=== PATIENT | male | born 1960 ===

== ENCOUNTER 2017-03-22 11:31 | Day surgery (SDC) | payer OTHER ==
[2017-03-18 11:51] VITALS: BMI 31.1
[2017-03-22 11:59] LABS: BASO # 0.03 K/mm3 (0.0-2.0); BASO % 0.4 % (0.0-3.0); EOS # 0.3 (0.0-0.7); EOS % 4.4 % (1.5-5.0); GRAN # 4.22 (1.4-6.5); GRAN % 59.9 % (50.0-68.0); HEMATOCRIT 43.2 % (42.0-52.0); LYMPH # 2.2 (1.2-3.4); LYMPH % 30.5 % (22.0-35.0); MEAN CORPUSCULAR HGB CONC 33.3 g/dl (31.0-37.0); MEAN PLATELET VOLUME 10.8 fl (7.0-11.0); MONO # 0.3 (0.1-0.6); MONO % 4.8 % (1.0-6.0); RED CELL DISTRIBUTION WIDTH 15.6 % (11.5-14.5); WHITE BLOOD COUNT 7.1 10^3/ul (4.5-11.0)
[2017-03-22 12:10] LABS: BLOOD UREA NITROGEN 16 mg/dL (7-21); CALCIUM 10.2 mg/dL (8.4-10.5); CARBON DIOXIDE 26 mmol/L (21-33); CHLORIDE 102 mmol/L (98-107); GFR AFRICAN-AMERICAN > 60; GLUCOSE,RANDOM 170 mg/dL (70-110); INR 0.98 (0.93-1.08); PARTIAL THROMBOPLASTIN TIME 27.1 Seconds (23.7-30.8); POTASSIUM 4.2 mmol/L (3.6-5.0); SODIUM 142 mmol/L (132-148)
[2017-03-22] MEDS ORDERED: Midazolam 2 MG/2 ML VIAL ONE (14:35)
[2017-03-22] MEDS ORDERED: Oxycodone/Acetaminophen 5/325 mg Tab PO PRN (15:21)
[2017-03-22] MEDS ORDERED: Sodium Chloride 0.45% 1,000 ML IV SCH (15:30)
[2017-03-22 15:33] LABS: BODY FLUID TYPE PERITONEAL/ASCITES
[2017-03-22] MEDS ORDERED: Oxycodone/Acetaminophen 5/325 mg Tab ONE (15:54)
[2017-03-22 16:13] LABS: BF GROSS APPEARANCE CLEAR (CLEAR)
[2017-03-22 16:19] VITALS: O2SAT 99
[2017-03-22 16:43] VITALS: RESP 18; TEMP 97.9
[2017-03-22 17:45] VITALS: BP 112/70; PULSE 86
--- NOTE | 2017-03-22 19:33 | CT ---
PROCEDURE: CT guided right renal cyst aspiration HISTORY: Right flank pain. 7 x 11 cm right peripelvic cyst. Needs drainage. PHYSICIAN(S): Edgar Stewart MD. TECHNIQUE: The relative risks and indications of the procedure were explained to the patient and consent obtained. The patient was placed prone on the CT scanner and preliminary images through the kidneys obtained. Conscious sedation and monitoring were provided throughout the procedure by a nurse. There is a 7 x 11 cm simple appearing cyst in the right renal pelvis.. A right posterior approach was selected and the area prepped and draped in the usual sterile fashion. 1% Xylocaine was used to anesthetize the skin and soft tissues. A 7 Montenegrin trocar catheter was advanced into the right renal cyst. 400 cc of clear straw-colored fluid was aspirated. The appropriate labs were sent. Postprocedure images showed complete drainage of the cyst and no significant hemorrhage P IMPRESSION: 1. CT-guided right renal cyst aspiration as described above. 400 cc of straw-colored fluid was aspirated. The appropriate labs were sent.
== END 2017-03-22 18:00 | disposition home or self-care (01) ==
LOC: SDS 11:31
PROVIDERS: ATTEND Radiology Vascular & Interventional Radiology
DX: N28.1 Cyst of kidney, acquired (principal); E11.9 Type 2 diabetes mellitus without complications
CPT/HCPCS: 36415; 49406; 80048; 85025; 85610; 85730; 87070; 87075; 87101; 89051; J2250; J2405; J3010; J7030

== ENCOUNTER 2018-05-04 07:07 | Day surgery (SDC) | payer OTHER ==
[2018-05-01 16:40] VITALS: BMI 30.2
[2018-05-04 07:44] LABS: BASO # 0.04 K/mm3 (0.0-2.0); BASO % 0.5 % (0.0-3.0); EOS # 0.4 (0.0-0.7); EOS % 5.7 % (1.5-5.0); GRAN # 3.99 (1.4-6.5); GRAN % 52.7 % (50.0-68.0); HEMOGLOBIN 14.6 g/dL (14.0-18.0); LYMPH # 2.7 (1.2-3.4); LYMPH % 35.4 % (22.0-35.0); MEAN CELL VOLUME 76.5 fl (80.0-105.0); MEAN CORPUSCULAR HGB CONC 32.7 g/dl (31.0-37.0); MEAN PLATELET VOLUME 10.9 fl (7.0-11.0); MONO # 0.4 (0.1-0.6); MONO % 5.7 % (1.0-6.0); RBC 5.83 10^6/uL (3.5-6.1); RED CELL DISTRIBUTION WIDTH 15.7 % (11.5-14.5); WHITE BLOOD COUNT 7.6 10^3/uL (4.5-11.0)
[2018-05-04 07:56] LABS: INR 0.87; PARTIAL THROMBOPLASTIN TIME 29.7 Seconds (25.1-36.5)
[2018-05-04 07:59] LABS: BLOOD UREA NITROGEN 13 mg/dL (7-21); CALCIUM 9.3 mg/dL (8.4-10.5); GFR NON-AFRICAN AMERICAN > 60; HDL CHOLESTEROL 30 mg/dL (29-60)
[2018-05-04 08:10] LABS: LDL CHOLESTEROL 89 mg/dL (0-129)
--- NOTE | 2018-05-04 08:45 | HP ---
DATE OF EXAM: 05/04/2018 REASON FOR ADMISSION: Left heart cath, possible angioplasty, abnormal stress test. BRIEF CLINICAL HISTORY: This is a 57-year-old male with past medical history significant for diabetes, hypertension, hyperlipidemia, recurrent chest pain, and complaining of chest pain on exertion. Patient underwent a stress test, walk on the treadmill, and is abnormal, so patient is scheduled for elective cardiac cath, possible angioplasty. Patient underwent a regular stress test that was equivocal, shows [address] depression upsloping II, III, aVF, V5, V6 and is read by equivocal, so patient is scheduled for elective cardiac cath, possible angioplasty. PAST HISTORY: Significant for diabetes, hypertension, and hyperlipidemia. SOCIAL HISTORY: Denies smoking, denies any history of alcohol abuse. CURRENT CARDIAC WORKUP: Patient had a stress test that is regular treadmill. Patient walked on the treadmill for total 10 minutes and 37 seconds, stage IV with a work capacity 12.7 METs, but at the peak of stress the patient shows ST changes 1-mm depression with upsloping II, III, aVF, V5, V6. Equivocal suggested either nuclear or cardiac catheterization. CURRENT MEDICATIONS: Patient is taking Nexium 40 mg daily, Benicar 40 mg daily, atorvastatin 40 mg daily, aspirin 81 mg daily, , Wellbutrin XL 150 mg daily, glipizide 10 mg daily, gabapentin 200 mg daily, and insulin Lantus 50 units subcutaneous b.i.d. PHYSICAL EXAMINATION: GENERAL: Height of patient 5 feet 2 inches, weight of patient 165 pounds, body mass index 30.3 kg per meter square. VITAL SIGNS: Rest of the vitals, temperature afebrile, heart rate 80, and blood pressure 130/80. HEENT: PERRLA. Extraocular muscles intact. NECK: Supple. No carotid bruits or thyromegaly. CHEST: Clear to auscultation. HEART: S1, S2, regular. ABDOMEN: Soft. EXTREMITIES: Clubbing, cyanosis negative. LABORATORY DATA: Blood workup pending. IMPRESSION: A 57-year-old male with past medical history of diabetes, hypertension, and hyperlipidemia complaining of chest pain and dyspnea on exertion. Patient underwent a stress test. There is an abnormal equivocal, suggest cardiac catheterization. Patient denies any shortness of breath now. We will load with aspirin and Plavix, and wait for the blood work. When the blood work is available, we will load with aspirin and Plavix and pursue cardiac catheterization. Further recommendation after cardiac catheterization. Thank you Dr. Leahy for the opportunity in taking care of patient, Ralph Carvalho. Further recommendation after cardiac catheterization. Larry Ledezma MD
[2018-05-04] MEDS ORDERED: Lidocaine 2% PF (10 ml) Amp ONE (08:51)
[2018-05-04] MEDS ORDERED: Iohexol 350mgl/ml 50 ML ONE (08:52)
[2018-05-04] MEDS ORDERED: Nitroglycerin 50mg in D5W 50 MG/250 ML BOTTLE IV ONE (08:52)
[2018-05-04] MEDS ORDERED: Iodixanol 320 MG/ML 100 ML BOTTLE IV ONE (08:52)
[2018-05-04] MEDS ORDERED: Verapamil 2 ML ONE (08:52)
[2018-05-04] MEDS ORDERED: Phenylephrine 10 mg/ml Inj ONE ×2 (08:52→10:13)
[2018-05-04] MEDS ORDERED: Iodixanol 320 MG/ML 200 ML BOTTLE IV ONE (08:52)
[2018-05-04] MEDS ORDERED: Midazolam 2 MG/2 ML VIAL ONE ×2 (09:19→09:38)
[2018-05-04] MEDS ORDERED: Dextrose 50% SYRINGE Inj (50 ml) ONE (10:05)
[2018-05-04] MEDS ORDERED: Bacitracin 500 Units/gm Oint Foilpak UD TOP ONE (10:10)
[2018-05-04] MEDS ORDERED: Sodium Chloride 0.9% 1,000 ML IV SCH (10:15)
[2018-05-04 10:52] VITALS: TEMP 97.5
[2018-05-04 11:11] VITALS: O2SAT 95
--- NOTE | 2018-05-04 12:15 | CPOSTOP ---
DATE: 05/04/2018 CARDIOVASCULAR LAB POSTPROCEDURE NOTE DICTATING PHYSICIAN: Larry Ledezma MD. [place] PREP TEACHER: NICOLÁS Valentin TYPE OF ANESTHESIA: Moderate conscious sedation. Total dose given, 3 mg of Versed and 150 of fentanyl. Periodically, started 1 mg of Versed, 50 of fentanyl. PRE-PROCEDURE DIAGNOSES: Unstable angina, abnormal stress test. PROCEDURE PERFORMED: Left heart catheterization. FINDINGS: Nonobstructive coronary artery disease, preserved LV function. FINAL DIAGNOSIS: Nonobstructive coronary artery disease. POSTPROCEDURE CONDITION: Stable. VASCULAR ACCESS SITE: Left radial. CLOSURE DEVICE: TR Band. TOTAL RADIATION DOSE: 7612.3 milligray unit. TOTAL FLUORO TIME: 1.9 minutes. Larry Ledezma MD
[2018-05-04 13:02] VITALS: BP 109/71; PULSE 80; RESP 20
[2018-05-04] MEDS ORDERED: Bacitracin 500 Units/gm Oint Foilpak UD ONE (13:08)
--- NOTE | 2018-05-04 17:46 | CARD ---
APPROVED REPORT Date of service: 05/04/2018 Procedure(s) performed: Left Heart Catheterization HISTORY The patient is a 57 year-old male with a history of : diabetes mellitus with insulin treatment , previous diagnostic cath, hypertension , dyslipidemia , chst pain and positive stress test. INDICATION The indication(s) include : positive stress test. CASE TECHNIQUE The patient was brought electively to the Cardiac Catheterization Laboratory in a fasting state and was prepped and draped in a sterile manner. The left wrist was infiltrated with 2% Lidocaine subcutaneous anesthesia. A 6FR Eat Your KimchiDESStubmatic ACCESS KIT sheath was inserted into the left radial artery without difficulty. Coronary angiography was performed using coronary diagnostic catheters. The left coronary system was accessed and visualized with a Diagnostic ,5 Fr JL 3.5 catheter. The right coronary system was accessed and visualized with a Diagnostic ,5 Fr JR 4 catheter. The left ventricle was accessed and visualized with a 5F PIGTAIL 145 CATH DXT 110 CM catheter. Left ventricular/Aortic Valve gradient assessed on pullback. Left ventriculogram was performed in FONTENOT projection. Closure device was deployed with a Fr TR Band (Regular) without any complications. The patient tolerated the procedure well and there were no complications associated with the procedure. Vessel Analysis The patient's coronary anatomy is right dominant. The left main coronary artery is a large size vessel without significant stenosis. The left main bifurcates to the left anterior descending and circumflex. The left anterior descending artery is a medium size vessel with diffuse calcification noted throughout this vessel and without significant stenosis. There is a 30-40% stenosis in the mid segment. The first diagonal branch is a small size vessel with intimal irregularities and without significant stenosis. The circumflex artery is a large size vessel with intimal irregularities and without significant stenosis. The first obtuse marginal branch is a large size vessel with intimal irregularities and without significant stenosis. The right coronary artery is a medium size vessel with intimal irregularities and without significant stenosis. The right posterior descending artery is a small size vessel with diffuse calcification noted throughout this vessel and without significant stenosis. There is a 55% stenosis in the mid segment. The right posterolateral branch is a small size vessel with diffuse calcification noted throughout this vessel and without significant stenosis. Left Ventricle The left ventricle is normmal in size with normal contractility. There was no cardiomyopathy. The left ventricular ejection fraction is estimated to be 55-60%. The left ventricular end diastolic pressure is 15-20 mmHg. with respiratory variation There was no gradient across the aortic valve upon pullback. Conclusion Non obstructive CAD limited to small R PDA 55% diffusely diseased. But diffuse atherosclerotic Campus Noted. Preserved Lv Fx. EF-55-60%, EDP-15-20 with respiraqtory variation. LILIAM Recommendations Aggressive Medical TherapyCardiac Risk Reduction Program Weight Loss Reduction Program Consider Re assess for LILIAM. Increase atorvastatin to 40 mg po daily with a goal to keep lDL< 70 Echo to assess Valvular Fx and RVSP CC; dr. Saida Leahy.
== END 2018-05-04 14:30 | disposition home or self-care (01) ==
LOC: CATH 07:07
PROVIDERS: ATTEND Internal Medicine Cardiovascular Disease
DX: I25.10 Atherosclerotic heart disease of native coronary artery without angina pectoris (principal); I25.110 Atherosclerotic heart disease of native coronary artery with unstable angina pectoris; I10 Essential (primary) hypertension; E78.5 Hyperlipidemia, unspecified; E11.9 Type 2 diabetes mellitus without complications; Z79.4 Long term (current) use of insulin
CPT/HCPCS: 36415; 80048; 80061; 85025; 85610; 85730; 86850; 86900; 93458; 99152; 99153; C1769; C1887 ×2; J1644 ×2; J2250; J2405; J3010; J7030; Q9966

== ENCOUNTER 2018-09-02 07:41 | Outpatient (CLI) | payer OTHER | END 2018-09-02 07:42 | disposition home or self-care (01) | LOC: RAD 07:41 ==

== ENCOUNTER 2018-09-20 20:45 | Inpatient (IN) | payer OTHER ==
[2018-09-20 20:45] VITALS: BMI 30.2
[2018-09-20] MEDS ORDERED: Sodium Chloride 0.9% 1,000 ML IV STA (21:43)
--- NOTE | 2018-09-20 21:46 | ED PDOC ---
Arrival/HPI - General Chief Complaint: Abdominal Pain Time Seen by Provider: 09/20/18 21:38 Historian: Patient, Spouse - History of Present Illness Narrative History of Present Illness (Text): 09/20/18 23:56 57 y/o male with PMH of HTN, CAD, SBO s/p Hernia repair in 2014, DM presents to ED c/o abdominal pain x 6 hours. Abdominal pain is sharp, generalized, worst in the RLQ. Pain feels similar to previous SBO. Pt vomited approx 5 times today since the onset of pain, nonbloody, nonbilious. Associated dysuria x 1 week, has been taking old Amoxicillin at home intermittently, which pt stopped today. Pt also took 2 linzess this afternoon. Last BM this morning, brown, soft. Has been unable to tolerate PO since this morning secondary to vomiting. Denies chest pain, SOB, back pain, headache, dizziness, diarrhea, constipation, hematemesis, or any other complaints. Past Medical History - Provider Review Nursing Documentation Reviewed: Yes - Infectious Disease Hx of Infectious Diseases: None - Cardiac Hx Cardiac Disorders: No - Pulmonary Hx Respiratory Disorders: Yes Hx Sleep Apnea: Yes - Neurological Hx Neurological Disorder: No - HEENT Hx HEENT Disorder: Yes Hx Deafness: Yes (L EAR) - Renal Hx Renal Disorder: Yes Hx Kidney Stones: Yes - Endocrine/Metabolic Hx Endocrine Disorders: Yes Hx Diabetes Mellitus Type 2: Yes - Hematological/Oncological Hx Blood Disorders: No - Integumentary Hx Dermatological Disorder: No - Musculoskeletal/Rheumatological Hx Musculoskeletal Disorders: Yes - Gastrointestinal Hx Gastrointestinal Disorders: Yes (HEMORRHOIDSWTIH SX) Hx Gastroesophageal Reflux: Yes Other/Comment: INCARCERATED UMBILICAL HERNIA 05-19-15-PARTIAL SMALL BOWEL OBSTRUCTION 05-21-15 - Genitourinary/Gynecological Hx Genitourinary Disorders: No - Psychiatric Hx Psychophysiologic Disorder: No Hx Substance Use: No - Surgical History Hx Cardiac Catheterization: Yes (x 3) Hx Tonsillectomy: Yes - Anesthesia Hx Anesthesia Reactions: No Hx Malignant Hyperthermia: No - Suicidal Assessment Feels Threatened In Home Enviroment: No Family/Social History - Physician Review Nursing Documentation Reviewed: Yes Family/Social History: No Known Family HX Smoking Status: Never Smoked Hx Alcohol Use: No Hx Substance Use: No Hx Substance Use Treatment: No Allergies/Home Meds Allergies/Adverse Reactions: Allergies No Known Allergies Allergy (Verified 09/20/18 21:32) Home Medications: Home Meds Medication Instructions Recorded Confirmed Atorvastatin Calcium [Lipitor] 40 mg PO QPM 12/22/11 09/20/18 Esomeprazole Magnesium [Nexium] 40 mg PO DAILY 12/22/11 09/20/18 Magnesium 400 mg PO BID 06/21/13 09/20/18 Glipizide 10 mg PO TID 02/15/16 09/20/18 buPROPion XL [Wellbutrin XL] 150 mg PO DAILY 04/19/16 09/20/18 Gabapentin [Neurontin] 200 mg PO BID 05/05/16 09/20/18 Qanbq-5-Ucuc Ethyl Esters 1 GM 1 gm PO BID 05/05/16 09/20/18 [Lovaza] Aspirin [Ecotrin] 81 mg PO DAILY 03/18/17 09/20/18 Insulin Glargine, Recombina 50 unit SC BID 05/01/18 09/20/18 [Lantus] Olmesartan [BenicarNf] 40 mg PO DAILY 05/01/18 09/20/18 Metformin HCl [Glucophage] 1,000 mg PO BID 05/04/18 09/20/18 Review of Systems - Physician Review All systems were reviewed & negative as marked: Yes - Review of Systems Constitutional: Normal. absent: Fatigue, Fevers Eyes: Normal. absent: Vision Changes ENT: Normal. absent: Sore Throat, Sinus Congestion Respiratory: Normal. absent: SOB, Cough Cardiovascular: Normal. absent: Chest Pain, Palpitations Gastrointestinal: Abdominal Pain, Nausea, Vomiting. absent: Stool Changes Genitourinary Male: Dysuria, Frequency Musculoskeletal: Normal. absent: Arthralgias, Back Pain, Neck Pain Skin: Normal. absent: Rash Neurological: Normal. absent: Headache, Dizziness Endocrine: Normal. absent: Diaphoresis Hemo/Lymphatic: Normal Psychiatric: Normal Physical Exam Vital Signs Reviewed: Yes Vital Signs Temp Pulse Resp BP Pulse Ox 09/20/18 21:31 98.5 F 85 19 157/89 H 99 Temperature: Afebrile Blood Pressure: Hypertensive Pulse: Regular Respiratory Rate: Normal Appearance: Positive for: Well-Appearing, Non-Toxic, Comfortable Pain Distress: None Mental Status: Positive for: Alert and Oriented X 3 - Systems Exam Head: Present: Atraumatic, Normocephalic Pupils: Present: PERRL Extroacular Muscles: Present: EOMI Conjunctiva: Present: Normal Mouth: Present: Moist Mucous Membranes Neck: Present: Normal Range of Motion Respiratory/Chest: Present: Clear to Auscultation, Good Air Exchange. No: Respiratory Distress, Accessory Muscle Use Cardiovascular: Present: Regular Rate and Rhythm, Normal S1, S2, Peripheal P ulses Present Abdomen: Present: Tenderness (generalized, worse in RLQ), Distention (mild), Normal Bowel Sounds, Guarding (RLQ). No: Peritoneal Signs Back: Present: Normal Inspection. No: CVA Tenderness, Midline Tenderness, Paraspinal Tenderness Upper Extremity: Present: Normal Inspection, Normal ROM, NORMAL PULSES, Neurov ascularly Intact, Capillary Refill < 2s. No: Cyanosis, Edema, Temperature Abnormalties Lower Extremity: Present: Normal Inspection, NORMAL PULSES, Normal ROM, Neurovascularly Intact, Capillary Refill < 2 s. No: Edema, Temperature Abnormalties Neurological: Present: GCS=15, CN II-XII Intact, Speech Normal, Motor Func Grossly Intact, Normal Sensory Function, Gait Normal Skin: Present: Warm, Dry, Normal Color. No: Rashes Lymphatic: No: Cervical Adenopathy Psychiatric: Present: Alert, Oriented x 3, Normal Insight, Normal Concentration, Normal Affect, Normal Mood Medical Decision Making ED Course and Treatment: Initial Plan: * CBC, CMP * Coags * Lipase * Troponin * EKG * CXR * CT Abd/Pelvis * Zofran * Toradol * IVF 23:30 Pt reports improvement in symptoms with medication. No vomiting. 23:55 Bloodwork reviewed, unremarkable CXR shows no active disease as read by me EKG shows no acute ischemic change; troponin negative 00:30 CT shows SBO Call placed to surgical scrub tech and Dr. Richards, patient's PMD. 00:38 Spoke with surgical scrub tech, who will come to evaluate pt in the ED for Dr. Solomon 00:[address] Richards, who accepted patient on to his service for inpatient admission to med/surg floor with diagnosis of small bowel obstruction. Pt updated with change in disposition. Pt resting comfortably in stretcher with stable vital signs at this time. No active vomiting. 09/22/18 14:11 - Lab Interpretations Lab Results: 09/20/18 21:58 09/20/18 21:58 Lab Results 09/20/18 22:21: Urine Color Yellow, Urine Appearance Clear, Urine pH 7.0, Ur Specific [place] 1.020, Urine Protein 30 H, Urine Glucose (UA) Negative, Urine Ketones 40 H, Urine Blood Trace-intact H, Urine Nitrate Negative, Urine Bilirubi n Negative, Urine Urobilinogen 0.2, Ur Leukocyte Esterase Negative, Urine RBC 0 - 2, Urine WBC None, Ur Epithelial Cells None 09/20/18 21:58: Sodium 140, Potassium 4.3, Chloride 97 L, Carbon Dioxide 28, Anion Gap 19, BUN 13, Creatinine 0.7 L, Est GFR ( Amer) > 60, Est GFR (Non-Af Amer) > 60, Random Glucose 137 H, Calcium 10.3, Magnesium 1.6 L, Total Bilirubin 0.5, AST 27, ALT 23, Alkaline Phosphatase 94, Troponin I < 0.01, Total Protein 8.3, Albumin 5.1 H, Globulin 3.3, Albumin/Globulin Ratio 1.6, Lipase 25 09/20/18 21:58: PT 12.3, INR 1.11, APTT 37.4 09/20/18 21:58: WBC 8.4, RBC 6.11 H, Hgb 15.3, Hct 45.7, MCV 74.8 L, MCH 25.0, MCHC 33.5, RDW 15.0 H, Plt Count 299, MPV 10.8, Neut % (Auto) 77.8 H, Lymph % (Auto) 16.3 L, [place] % (Auto) 4.7, Eos % (Auto) 1.0 L, Baso % (Auto) 0.2, Lymph # (Auto) 1.4, [place] # (Auto) 0.4, Eos # (Auto) 0.1, Baso # (Auto) 0.02, Absolute Neuts (auto) 6.52 H I have reviewed the lab results: Yes - RAD Interpretation Narrative RAD Interpretations (Text): 09/21/18 00:28 CT Abdomen and Pelvis with IV contrast: LUNG BASES: The lung bases appear clear. No pleural effusions are seen. LIVER: Unremarkable. GALLBLADDER AND BILE DUCTS: The gallbladder appears within normal limits. No radioopaque gallstones are seen. No biliary ductal dilatation is evident. PANCREAS: Unremarkable. SPLEEN: The spleen is enlarged measuring 14.3 cm anteroposterior. ADRENAL GLANDS: Unremarkable. KIDNEYS, URETERS, AND BLADDER: The left kidney demonstrates a few tiny sub-centimeter hypodensities too small to adequately characterize. The right kidney demonstrates a 4.9 cm parapelvic cystic lesion with septation and chunky calcification. 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 Options for further management include renal mass protocol CT, renal ultrasound or renal MRI. Alternatively, if indicated, reimaging in 6 months could be considered. STOMACH AND BOWEL: There is small bowel obstruction, with proximal and mid small bowel loops fluid- filled and measuring up to 3.7 cm in diameter. Mid to distal loops are decompressed. Transition zone appears to be in the pelvis. APPENDIX: Normal appendix. PERITONEUM: No free fluid. No free air. LYMPH NODES: No lymphadenopathy is evident. REPRODUCTIVE: Unremarkable as visualized. VASCULATURE: Minimal atherosclerotic calcification of the visualized abdominal aorta and branches. BONES: Mild multilevel degenerative spine changes. MISCELLANEOUS: Small bilateral fat containing inguinal hernias. IMPRESSION: 1. There is small bowel obstruction, with proximal and mid small bowel loops fluid-filled and measuring up to 3.7 cm in diameter. Mid to distal loops are decompressed. Transition zone appears to be in the pelvis. 2. The spleen is enlarged measuring 14.3 cm anteroposterior. 3. The right kidney demonstrates a 4.9 cm parapelvic cystic lesion with septation and chunky calcification. 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 Options for further management include renal mass protocol CT, renal ultrasound or renal MRI. Alternatively, if indicated, reimaging in 6 months could be considered. 4. Additional and incidental findings as described above. Electronically signed on Sep 21, 2018 12:25:13 AM EDT by: Airam Merino M.D., Certified by ABR, MSK, Neuroradiology Radiology Orders: 09/20/18 21:44 ABD & PELVIS IV CONTRAST ONLY [CT] Stat Software Lead: Radiologist - EKG Interpretation EKG Interpretation (Text): 09/21/18 01:47 Rate 82; NSR; Incomplete RBBB; No STEMI, nonspecific ST/T wave changes Interpreted by ED Physician: Yes Type: 12 lead EKG - Medication Orders Current Medication Orders: Sodium Chloride (Sodium Chloride 0.9%) 1,000 mls @ 1,000 mls/hr IV .Q1H STA Stop: 09/20/18 22:42 Disposition/Present on Arrival - Present on Arrival Any Indicators Present on Arrival: No History of DVT/PE: No History of Uncontrolled Diabetes: No Urinary Catheter: No History of Decub. Ulcer: No History Surgical Site Infection Following: None - Disposition Have Diagnosis and Disposition been Completed?: Yes Diagnosis: Small bowel obstruction, Kidney lesion Disposition: HOSPITALIZED Disposition Time: 00:40 Patient Plan: Admission Patient Problems: Current Active Problems Problem Status Onset Small bowel obstruction Resolved Kidney lesion Chronic Diabetes Chronic Essential (primary) hypertension Chronic Condition: STABLE
[2018-09-20 22:03] LABS: BASO # 0.02 K/mm3 (0.0-2.0); BASO % 0.2 % (0.0-3.0); EOS # 0.1 (0.0-0.7); HEMOGLOBIN 15.3 g/dL (14.0-18.0); LYMPH # 1.4 (1.2-3.4); LYMPH % 16.3 % (22.0-35.0); MEAN CELL VOLUME 74.8 fl (80.0-105.0); MEAN CORPUSCULAR HGB CONC 33.5 g/dl (31.0-37.0); MEAN PLATELET VOLUME 10.8 fl (7.0-11.0); MONO # 0.4 (0.1-0.6); MONO % 4.7 % (1.0-6.0); RBC 6.11 10^6/uL (3.5-6.1); WHITE BLOOD COUNT 8.4 10^3/uL (4.5-11.0)
[2018-09-20 22:16] LABS: ALB/GLOB RATIO 1.6 (1.1-1.8); ALBUMIN 5.1 g/dL (3.0-4.8); ALT/SGPT 23 U/L (7-56); AST/SGOT 27 U/L (17-59); BLOOD UREA NITROGEN 13 mg/dL (7-21); CALCIUM 10.3 mg/dL (8.4-10.5); GFR NON-AFRICAN AMERICAN > 60; LIPASE 25 U/L (23-300)
[2018-09-20 22:17] LABS: INR 1.11; PARTIAL THROMBOPLASTIN TIME 37.4 Seconds (26.9-38.3); PROTHROMBIN TIME 12.3 SECONDS (9.4-12.5)
[2018-09-20 22:24] LABS: URINE BILIRUBIN NEGATIVE (NEGATIVE); URINE BLOOD TRACE-INTACT (NEGATIVE); URINE GLUCOSE (UA) NEGATIVE (NEGATIVE); URINE LEUKOCYTE ESTERASE NEGATIVE Leu/uL (NEGATIVE); URINE PROTEIN 30 mg/dL (<30 mg/dL); URINE UROBILINOGEN 0.2 E.U./dL (<1 E.U./dL)
[2018-09-20 22:25] LABS: URINE APPEARANCE CLEAR (CLEAR); URINE COLOR YELLOW (YELLOW)
[2018-09-20 22:27] LABS: TROPONIN I < 0.01 ng/mL
[2018-09-20 22:30] LABS: URINE RBC 0 - 2 /hpf (0-2)
[2018-09-20] MEDS ORDERED: Iohexol 350 MG/100 ML VIAL ONE (22:48)
[2018-09-21] MEDS ORDERED: Sodium Chloride 0.9% 1,000 ML IV SCH ×2 (00:45→01:45)
--- NOTE | 2018-09-21 00:54 | CP.PCM.CON ---
History of Present Illness - History of Present Illness History of Present Illness: Surgery Consult Note. Dr. Watkins 54yo M w PMHx of DM, HTN, Kidney Stones, Prior pSBO after umbilical hernia repair here for evaluation of abdominal pain, nausea, vomiting. Patient reports abdominal pain which started at 3AM yesterday morning, associated with nausea and vomiting, 6 episodes over the course of the day, non-bilious, non-bloody. Last BM was yesterday morning, normal, no blood. Denies passing any flatus since. Reports that his abdomen has been distended since onset of his symptoms. States that it feels similar to prior episode of small bowel obstruction. Denies any CP/SOB. No palpitations. No Headaches. No F/C. No Dysuria. No urinary complaints. PMHx: CAD, DM, HTN, Kidney Stones PSHx: Septoplasty, Tonsillectomy, Umbilical Hernia Repair w mesh Family Hx: Non-contributory Social Hx: Denies any tobacco use; Denies ETOH; Denies illicit drugs NKDA Review of Systems - Review of Systems All systems: reviewed and no additional remarkable complaints except - Constitutional Constitutional: absent: Chills, Fever - Cardiovascular Cardiovascular: absent: Chest Pain, Diaphoresis, Dyspnea - Respiratory Respiratory: absent: Cough, Dyspnea - Gastrointestinal Gastrointestinal: Abdominal Pain, Belching, Bloating, Nausea, Vomiting. absent: Constipation, Diarrhea, Hematemesis, Hematochezia - Genitourinary Genitourinary: absent: Dysuria Past Patient History - Infectious Disease Hx of Infectious Diseases: None - Past Social History Smoking Status: Never Smoked Alcohol: None Drugs: Denies - CARDIAC Hx Cardiac Disorders: No - PULMONARY Hx Respiratory Disorders: Yes Hx Sleep Apnea: Yes - NEUROLOGICAL Hx Neurological Disorder: No - HEENT Hx HEENT Problems: Yes Hx Deafness: Yes (L EAR) - RENAL Hx Chronic Kidney Disease: Yes Hx Kidney Stones: Yes - ENDOCRINE/METABOLIC Hx Endocrine Disorders: Yes Hx Diabetes Mellitus Type 2: Yes - HEMATOLOGICAL/ONCOLOGICAL Hx Blood Disorders: No - INTEGUMENTARY Hx Dermatological Problems: No - MUSCULOSKELETAL/RHEUMATOLOGICAL Hx Musculoskeletal Disorders: Yes - GASTROINTESTINAL Hx Gastrointestinal Disorders: Yes (HEMORRHOIDSWTIH SX) Hx Gastroesophageal Reflux: Yes Other/Comment: INCARCERATED UMBILICAL HERNIA 05-19-15-PARTIAL SMALL BOWEL OBSTRUCTION 05-21-15 - GENITOURINARY/GYNECOLOGICAL Hx Genitourinary Disorders: No - PSYCHIATRIC Hx Psychophysiologic Disorder: No Hx Substance Use: No - SURGICAL HISTORY Hx Cardiac Catheterization: Yes (x 3) Hx Tonsillectomy: Yes - ANESTHESIA Hx Anesthesia Reactions: No Hx Malignant Hyperthermia: No Meds Allergies/Adverse Reactions: Allergies Allergy/AdvReac Type Severity Reaction Status Date / Time No Known Allergies Allergy Verified 09/20/18 21:32 - Medications Medications: Current Medications Sodium Chloride (Sodium Chloride 0.9%) 1,000 mls @ 100 mls/hr IV .Q10H GAVINO Last Admin: 09/21/18 00:51 Dose: 100 mls/hr Physical Exam - Constitutional Appears: Well, Non-toxic, No Acute Distress - Head Exam Head Exam: ATRAUMATIC, NORMAL INSPECTION, NORMOCEPHALIC - Eye Exam Eye Exam: EOMI, Normal appearance. absent: Scleral icterus - ENT Exam ENT Exam: Mucous Membranes Moist - Respiratory Exam Respiratory Exam: NORMAL BREATHING PATTERN. absent: Accessory Muscle Use, Respiratory Distress - Cardiovascular Exam Cardiovascular Exam: RRR. absent: JVD - GI/Abdominal Exam GI & Abdominal Exam: Distended (mild distention), Soft. absent: Firm, Guarding, Rebound, Rigid - Extremities Exam Extremities exam: Positive for: normal inspection. Negative for: calf tenderness - Neurological Exam Neurological exam: Alert, Oriented x3 - Psychiatric Exam Psychiatric exam: Normal Affect, Normal Mood - Skin Skin Exam: Dry, Intact, Normal Color, Warm Results - Vital Signs Recent Vital Signs: Last Vital Signs Temp 98.4 F 09/21/18 00:52 Pulse 73 09/21/18 00:52 Resp 18 09/21/18 00:52 BP 130/91 H 09/21/18 00:52 Pulse Ox 100 09/21/18 00:52 - Labs Result Diagrams: 09/20/18 21:58 09/20/18 21:58 Labs: Laboratory Results - last 24 hr 09/20/18 09/20/18 09/20/18 21:58 21:58 21:58 WBC 8.4 RBC 6.11 H Hgb 15.3 Hct 45.7 MCV 74.8 L MCH 25.0 MCHC 33.5 RDW 15.0 H Plt Count 299 MPV 10.8 Neut % (Auto) 77.8 H Lymph % (Auto) 16.3 L [place] % (Auto) 4.7 Eos % (Auto) 1.0 L Baso % (Auto) 0.2 Lymph # (Auto) 1.4 [place] # (Auto) 0.4 Eos # (Auto) 0.1 Baso # (Auto) 0.02 Absolute Neuts (auto) 6.52 H PT 12.3 INR 1.11 APTT 37.4 Sodium 140 Potassium 4.3 Chloride 97 L Carbon Dioxide 28 Anion Gap 19 BUN 13 Creatinine 0.7 L Est GFR ( Amer) > 60 Est GFR (Non-Af Amer) > 60 Random Glucose 137 H Calcium 10.3 Magnesium 1.6 L Total Bilirubin 0.5 AST 27 ALT 23 Alkaline Phosphatase 94 Troponin I < 0.01 Total Protein 8.3 Albumin 5.1 H Globulin 3.3 Albumin/Globulin Ratio 1.6 Lipase 25 Urine Color Urine Appearance Urine pH Ur Specific [place] Urine Protein Urine Glucose (UA) Urine Ketones Urine Blood Urine Nitrate Urine Bilirubin Urine Urobilinogen Ur Leukocyte Esterase Urine RBC Urine WBC Ur Epithelial Cells 09/20/18 22:21 WBC RBC Hgb Hct MCV MCH MCHC RDW Plt Count MPV Neut % (Auto) Lymph % (Auto) [place] % (Auto) Eos % (Auto) Baso % (Auto) Lymph # (Auto) [place] # (Auto) Eos # (Auto) Baso # (Auto) Absolute Neuts (auto) PT INR APTT Sodium Potassium Chloride Carbon Dioxide Anion Gap BUN Creatinine Est GFR ( Amer) Est GFR (Non-Af Amer) Random Glucose Calcium Magnesium Total Bilirubin AST ALT Alkaline Phosphatase Troponin I Total Protein Albumin Globulin Albumin/Globulin Ratio Lipase Urine Color Yellow Urine Appearance Clear Urine pH 7.0 Ur Specific [place] 1.020 Urine Protein 30 H Urine Glucose (UA) Negative Urine Ketones 40 H Urine Blood Trace-intact H Urine Nitrate Negative Urine Bilirubin Negative Urine Urobilinogen 0.2 Ur Leukocyte Esterase Negative Urine RBC 0 - 2 Urine WBC None Ur Epithelial Cells None Assessment & Plan - Assessment and Plan (Free Text) Assessment: 57yo M with PMHx of DM, HTN, CAD here with small bowel obstruction - CT Abd/Pelvis noted with mod dilated loops of proximal/mid small bowel with distal small bowel decompressed. Suspicious for SBO. Plan: - Keep NGT to suction. Continuous at 100 mmHg - Strict Is & Os - Antiemetics as needed - IVF - Pain management - Monitor for bowel function - NPO w ice (record amount of ice given) - lozenges for comfort Further recs as per Dr. June Uribe PGY2 surgery
[2018-09-21] MEDS ORDERED: Morphine 2 mg/ml ISec IVP STA (01:04)
[2018-09-21] MEDS ORDERED: Benzocaine/Menthol (Cepacol) Lozenge MT PRN (01:32)
[2018-09-21] MEDS ORDERED: Dextrose 50% SYRINGE Inj (50 ml) IV PRN (07:05)
--- NOTE | 2018-09-21 07:07 | CP.PCM.HP ---
<Ghazala Robert - Last Filed: 09/21/18 12:56> History of Present Illness - History of Present Illness History of Present Illness: IM Resident progress note for Dr. Leahy's service CC: Abdominal banuelos and vomiting Patient is a 57 y/o male with PMHx of IDDM2, HTN, kidney stone, GERD, h/o SBP post umbilical hernia repair presenting with diffuse abdominal pain and vomiting since 2 am yesterday morning. Patient had multiple episodes of vomiting ~ 6 times, which was non bloody and bilious, along with nausea. Denies diarrhea, had normal bowel movement yesterday morning. Denies fever or chills. No dysurea. No bowel movement or flatus since admission. In the ER patient was found to have small bowel obstruction on CT, thus surgery was consulted, and patient had NGT placed. This morning, patient states the abdominal pain has improved. PMHx: non obstructing CAD, IDDM2, htn, kidney stones, h/o SBP post hernia repair, renal cysts, GERD. PSHx: tonsillectomy, umbilical hernia repair with mesh in 2014, cardiac cath, renal cyst aspiration in 2017 Family history: non contributory Social: denies tobacco, alcohol or illicit drug use Lives with who is a nurse at [employer] [place] meds: as per chart Allergy: NKDA Present on Admission - Present on Admission Any Indicators Present on Admission: No History of DVT/PE: No History of Uncontrolled Diabetes: No Urinary Catheter: No Decubitus Ulcer Present: No History Surgical Site Infection Following: None Review of Systems - Constitutional Constitutional: absent: Chills, Fatigue, Fever, Lethargy, Malaise, Weight Gain, Weakness - EENT Eyes: absent: Blurred Vision, Change in Vision Ears: absent: Ear Pain, Disequilibrium, Dizziness Nose/Mouth/Throat: absent: Nasal Congestion, Nasal Discharge - Cardiovascular Cardiovascular: absent: Chest Pain, Chest Pain at Rest, Chest Pain with Activity, Dyspnea, Dyspnea on Exertion, Edema, Syncope - Respiratory Respiratory: absent: Cough, Dyspnea, Hemoptysis, Wheezing, Chest Congestion, Pain with Coughing - Gastrointestinal Gastrointestinal: Abdominal Pain, Belching, Bloating, Cramping, Nausea, Vomiting. absent: Change in Bowel Habits, Constipation, Diarrhea, Dyspepsia, Dysphagia, Early Satiety, Excessive Flatus, Heartburn, Hematemesis, Loose Stools - Genitourinary Genitourinary: absent: Difficulty Urinating, Dysuria, Flank Pain - Musculoskeletal Musculoskeletal: absent: Atrophy, Back Pain - Integumentary Integumentary: absent: Alopecia, Bleeding Lesions, Jaundice - Neurological Neurological: absent: Dizziness, Numbness, Headaches, Syncope, Weakness - Psychiatric Psychiatric: absent: Anxiety, Confusion, Depression - Endocrine Endocrine: absent: Fatigue, Flushing, Palpitations, Polydipsia, Polyphagia, Polyuria - Hematologic/Lymphatic Hematologic: absent: Easy Bleeding, Easy Bruising, Lymphadenopathy Past Patient History - Infectious Disease Hx of Infectious Diseases: None - Past Social History Smoking Status: Never Smoked Alcohol: None Drugs: Denies Home Situation {Lives}: With Family - CARDIAC Hx Cardiac Disorders: No - PULMONARY Hx Respiratory Disorders: Yes Hx Sleep Apnea: Yes - NEUROLOGICAL Hx Neurological Disorder: No - HEENT Hx HEENT Problems: Yes (uses glasses) Hx Deafness: Yes (L EAR) - RENAL Hx Chronic Kidney Disease: Yes Hx Kidney Stones: Yes - ENDOCRINE/METABOLIC Hx Endocrine Disorders: Yes Hx Diabetes Mellitus Type 1: Yes Hx Diabetes Mellitus Type 2: Yes - HEMATOLOGICAL/ONCOLOGICAL Hx Blood Disorders: No - INTEGUMENTARY Hx Dermatological Problems: No - MUSCULOSKELETAL/RHEUMATOLOGICAL Hx Musculoskeletal Disorders: Yes Hx Arthritis: Yes Hx Back Pain: Yes Hx Herniated Disk: Yes - GASTROINTESTINAL Hx Gastrointestinal Disorders: Yes (HEMORRHOIDSWTIH SX) Hx Gastroesophageal Reflux: Yes Other/Comment: INCARCERATED UMBILICAL HERNIA 05-19-15-PARTIAL SMALL BOWEL OBSTRUCTION 05-21-15 - GENITOURINARY/GYNECOLOGICAL Hx Genitourinary Disorders: Yes Hx Hematuria: Yes - PSYCHIATRIC Hx Psychophysiologic Disorder: Yes Hx Depression: Yes - SURGICAL HISTORY Hx Surgeries: Yes (hernia repair ,tonsillectomy) Hx Cardiac Catheterization: Yes (x 3) - ANESTHESIA Hx Anesthesia Reactions: No Hx Malignant Hyperthermia: No Meds Allergies/Adverse Reactions: Allergies Allergy/AdvReac Type Severity Reaction Status Date / Time No Known Allergies Allergy Verified 09/20/18 21:32 Physical Exam - Constitutional Appears: No Acute Distress - Head Exam Head Exam: ATRAUMATIC, NORMAL INSPECTION, NORMOCEPHALIC - Eye Exam Eye Exam: EOMI, Normal appearance, PERRL. absent: Scleral icterus Pupil Exam: NORMAL ACCOMODATION, PERRL - ENT Exam ENT Exam: Mucous Membranes Moist - Neck Exam Neck exam: Positive for: Normal Inspection. Negative for: Lymphadenopathy, Meningismus, Tenderness, Thyromegaly - Respiratory Exam Respiratory Exam: Clear to Auscultation Bilateral, NORMAL BREATHING PATTERN. absent: Decreased Breath Sounds, Prolonged Expiratory Phase, Rales, Rhonchi, Wheezes, Respiratory Distress, Stridor - Cardiovascular Exam Cardiovascular Exam: REGULAR RHYTHM, RRR, +S1, +S2. absent: Bradycardia, Tachycardia, Diastolic murmur, Gallop, Irregular Rhythm, JVD, Rubs, Systolic Murmur - GI/Abdominal Exam GI & Abdominal Exam: Normal Bowel Sounds, Soft. absent: Distended, Firm, Guarding, Hernia, Hyperactive Bowel Sounds, Hypoactive Bowel Sounds, Rebound, Rigid, Tenderness Additional comments: NGT in place - Extremities Exam Extremities exam: Positive for: normal inspection. Negative for: pedal edema, tenderness - Back Exam Back exam: NORMAL INSPECTION - Neurological Exam Neurological exam: Alert, Oriented x3, Reflexes Normal - Psychiatric Exam Psychiatric exam: Normal Affect, Normal Mood - Skin Skin Exam: Dry, Intact, Normal Color, Warm Results - Vital Signs Recent Vital Signs: Last Vital Signs Temp 98.4 F 09/21/18 00:52 Pulse 73 09/21/18 00:52 Resp 18 09/21/18 02:28 BP 130/91 H 09/21/18 00:52 Pulse Ox 100 09/21/18 00:52 - Labs Result Diagrams: 09/21/18 10:00 09/21/18 10:00 Labs: Laboratory Results - last 24 hr 09/20/18 09/20/18 09/20/18 21:58 21:58 21:58 WBC 8.4 RBC 6.11 H Hgb 15.3 Hct 45.7 MCV 74.8 L MCH 25.0 MCHC 33.5 RDW 15.0 H Plt Count 299 MPV 10.8 Neut % (Auto) 77.8 H Lymph % (Auto) 16.3 L [place] % (Auto) 4.7 Eos % (Auto) 1.0 L Baso % (Auto) 0.2 Lymph # (Auto) 1.4 [place] # (Auto) 0.4 Eos # (Auto) 0.1 Baso # (Auto) 0.02 Absolute Neuts (auto) 6.52 H PT 12.3 INR 1.11 APTT 37.4 Sodium 140 Potassium 4.3 Chloride 97 L Carbon Dioxide 28 Anion Gap 19 BUN 13 Creatinine 0.7 L Est GFR ( Amer) > 60 Est GFR (Non-Af Amer) > 60 Random Glucose 137 H Calcium 10.3 Magnesium 1.6 L Total Bilirubin 0.5 AST 27 ALT 23 Alkaline Phosphatase 94 Troponin I < 0.01 Total Protein 8.3 Albumin 5.1 H Globulin 3.3 Albumin/Globulin Ratio 1.6 Lipase 25 Urine Color Urine Appearance Urine pH Ur Specific [place] Urine Protein Urine Glucose (UA) Urine Ketones Urine Blood Urine Nitrate Urine Bilirubin Urine Urobilinogen Ur Leukocyte Esterase Urine RBC Urine WBC Ur Epithelial Cells 09/20/18 22:21 WBC RBC Hgb Hct MCV MCH MCHC RDW Plt Count MPV Neut % (Auto) Lymph % (Auto) [place] % (Auto) Eos % (Auto) Baso % (Auto) Lymph # (Auto) [place] # (Auto) Eos # (Auto) Baso # (Auto) Absolute Neuts (auto) PT INR APTT Sodium Potassium Chloride Carbon Dioxide Anion Gap BUN Creatinine Est GFR ( Amer) Est GFR (Non-Af Amer) Random Glucose Calcium Magnesium Total Bilirubin AST ALT Alkaline Phosphatase Troponin I Total Protein Albumin Globulin Albumin/Globulin Ratio Lipase Urine Color Yellow Urine Appearance Clear Urine pH 7.0 Ur Specific [place] 1.020 Urine Protein 30 H Urine Glucose (UA) Negative Urine Ketones 40 H Urine Blood Trace-intact H Urine Nitrate Negative Urine Bilirubin Negative Urine Urobilinogen 0.2 Ur Leukocyte Esterase Negative Urine RBC 0 - 2 Urine WBC None Ur Epithelial Cells None Assessment & Plan - Assessment and Plan (Free Text) Assessment: 1) Small bowel obstruction 2) Hypomagnesemia 3) IDDM2 4) HTN 5) Non obstructing CAD 6) Right parapelvic cyst - 4.9 cm Bosniak type 2 F cyst 7) Gerd 8) Neuropathy 9) Dyslipidemia 10) depression Plan: For small bowel obstruction, surgery is following, patient's NGT is to suction, draining bilious fluid. Patient is NPO, getting NS@115 ml/hr. will follow up with surgery for further recommendations. Will give insulin sliding scale, and check fingerstick q6. BP is currently stable, will monitor. Holding ASA and the rest of po medications due to npo status. Will replete magnesemia. For renal cyst, patient had aspiration back in 2017, pathology at the time revealed no malignancy, and compared to prior imaging there's improvement in size. Thus will monitor. On protonix for Gerd, zofran prn for nausea, and toradol prn for pain. SCD for DVT prophylaxis. Patient seen, examined and case discussed with Dr. Leahy. - Date & Time Date: 09/21/18 Time: 07:55 <Chuckie Leahy S - Last Filed: 09/21/18 13:50> Results - Vital Signs Recent Vital Signs: Last Vital Signs Temp 99.3 F 09/21/18 08:56 Pulse 89 09/21/18 08:56 Resp 20 09/21/18 08:56 BP 123/72 09/21/18 08:56 Pulse Ox 97 09/21/18 08:56 - Labs Result Diagrams: 09/21/18 10:00 09/21/18 10:00 Labs: Laboratory Results - last 24 hr 09/20/18 09/20/18 09/20/18 21:58 21:58 21:58 WBC 8.4 RBC 6.11 H Hgb 15.3 Hct 45.7 MCV 74.8 L MCH 25.0 MCHC 33.5 RDW 15.0 H Plt Count 299 MPV 10.8 Neut % (Auto) 77.8 H Lymph % (Auto) 16.3 L [place] % (Auto) 4.7 Eos % (Auto) 1.0 L Baso % (Auto) 0.2 Lymph # (Auto) 1.4 [place] # (Auto) 0.4 Eos # (Auto) 0.1 Baso # (Auto) 0.02 Absolute Neuts (auto) 6.52 H PT 12.3 INR 1.11 APTT 37.4 Sodium 140 Potassium 4.3 Chloride 97 L Carbon Dioxide 28 Anion Gap 19 BUN 13 Creatinine 0.7 L Est GFR ( Amer) > 60 Est GFR (Non-Af Amer) > 60 POC Glucose (mg/dL) Random Glucose 137 H Calcium 10.3 Phosphorus Magnesium 1.6 L Total Bilirubin 0.5 AST 27 ALT 23 Alkaline Phosphatase 94 Troponin I < 0.01 Total Protein 8.3 Albumin 5.1 H Globulin 3.3 Albumin/Globulin Ratio 1.6 Lipase 25 Urine Color Urine Appearance Urine pH Ur Specific [place] Urine Protein Urine Glucose (UA) Urine Ketones Urine Blood Urine Nitrate Urine Bilirubin Urine Urobilinogen Ur Leukocyte Esterase Urine RBC Urine WBC Ur Epithelial Cells 09/20/18 09/21/18 09/21/18 22:21 07:09 10:00 WBC 6.6 D RBC 5.35 Hgb 13.5 L Hct 40.2 L MCV 75.1 L MCH 25.2 MCHC 33.6 RDW 15.0 H Plt Count 272 MPV 10.8 Neut % (Auto) 68.0 Lymph % (Auto) 23.7 [place] % (Auto) 7.3 H Eos % (Auto) 0.8 L Baso % (Auto) 0.2 Lymph # (Auto) 1.6 [place] # (Auto) 0.5 Eos # (Auto) 0.1 Baso # (Auto) 0.01 Absolute Neuts (auto) 4.46 PT INR APTT Sodium Potassium Chloride Carbon Dioxide Anion Gap BUN Creatinine Est GFR ( Amer) Est GFR (Non-Af Amer) POC Glucose (mg/dL) 103 Random Glucose Calcium Phosphorus Magnesium Total Bilirubin AST ALT Alkaline Phosphatase Troponin I Total Protein Albumin Globulin Albumin/Globulin Ratio Lipase Urine Color Yellow Urine Appearance Clear Urine pH 7.0 Ur Specific [place] 1.020 Urine Protein 30 H Urine Glucose (UA) Negative Urine Ketones 40 H Urine Blood Trace-intact H Urine Nitrate Negative Urine Bilirubin Negative Urine Urobilinogen 0.2 Ur Leukocyte Esterase Negative Urine RBC 0 - 2 Urine WBC None Ur Epithelial Cells None 09/21/18 09/21/18 10:00 11:04 WBC RBC Hgb Hct MCV MCH MCHC RDW Plt Count MPV Neut % (Auto) Lymph % (Auto) [place] % (Auto) Eos % (Auto) Baso % (Auto) Lymph # (Auto) [place] # (Auto) Eos # (Auto) Baso # (Auto) Absolute Neuts (auto) PT INR APTT Sodium 136 Potassium 3.9 Chloride 93 L Carbon Dioxide 37 H Anion Gap 10 BUN 22 H Creatinine 1.0 Est GFR ( Amer) > 60 Est GFR (Non-Af Amer) > 60 POC Glucose (mg/dL) 97 Random Glucose 116 H Calcium 9.5 Phosphorus 2.9 Magnesium 1.7 Total Bilirubin 0.2 AST 33 ALT < 6 L Alkaline Phosphatase 91 Troponin I Total Protein 6.7 Albumin 3.2 Globulin 3.5 Albumin/Globulin Ratio 0.9 L Lipase Urine Color Urine Appearance Urine pH Ur Specific [place] Urine Protein Urine Glucose (UA) Urine Ketones Urine Blood Urine Nitrate Urine Bilirubin Urine Urobilinogen Ur Leukocyte Esterase Urine RBC Urine WBC Ur Epithelial Cells Assessment & Plan - Assessment and Plan (Free Text) Plan: Pt seen and examined by me. I have reviewed the note of the medical detail representative and I agree with it. I have discussed the assessment and plan with the resident. I have reviewed the medications and the last labs.
[2018-09-21] MEDS: Insulin Lispro (humaLOG) LOW Coverage SC SCH ×4 (08:15→22:05)
[2018-09-21 08:57] VITALS: RESP 20
--- NOTE | 2018-09-21 09:40 | RAD ---
Date of service: 09/20/2018 HISTORY: abdominal pain COMPARISON: 05/05/2016 FINDINGS: LUNGS: No active pulmonary disease. PLEURA: No significant pleural effusion identified, no pneumothorax apparent. CARDIOVASCULAR: No aortic atherosclerotic calcification present. Normal cardiac size. No pulmonary vascular congestion. OSSEOUS STRUCTURES: No significant abnormalities. VISUALIZED UPPER ABDOMEN: Normal. OTHER FINDINGS: None. IMPRESSION: No active disease.
--- NOTE | 2018-09-21 09:43 | RAD ---
Date of service: 09/21/2018 HISTORY: NGT placement COMPARISON: 09/20/2018 FINDINGS: LUNGS: No active pulmonary disease. PLEURA: No significant pleural effusion identified, no pneumothorax apparent. CARDIOVASCULAR: No aortic atherosclerotic calcification present. Normal cardiac size. No pulmonary vascular congestion. OSSEOUS STRUCTURES: No significant abnormalities. VISUALIZED UPPER ABDOMEN: Normal. OTHER FINDINGS: None. IMPRESSION: No active disease. Nasogastric tube in satisfactory position
--- NOTE | 2018-09-21 09:56 | CT ---
Date of service: 09/20/2018 PROCEDURE: CT Abdomen and Pelvis with contrast HISTORY: generalized abd pain, h/o SBO COMPARISON: 01/31/2017 TECHNIQUE: Contrast dose: Radiation dose: Total exam DLP = 568.71 mGy-cm. This CT exam was performed using one or more of the following dose reduction techniques: Automated exposure control, adjustment of the mA and/or kV according to patient size, and/or use of iterative reconstruction technique. FINDINGS: LOWER THORAX: Unremarkable. LIVER: Unremarkable. No gross lesion or ductal dilatation. GALLBLADDER AND BILE DUCTS: Unremarkable. PANCREAS: Unremarkable. No gross lesion or ductal dilatation. SPLEEN: Unremarkable. ADRENALS: Unremarkable. No mass. KIDNEYS AND URETERS: 4.9 centimeter right parapelvic cyst with calcified septations compatible with a Bosniak type 2 F cyst.. No hydronephrosis. No solid mass. VASCULATURE: Unremarkable. No aortic aneurysm. No aortic atherosclerotic calcification or mural plaque present. BOWEL: Dilated loops of small bowel consistent with small bowel obstruction. Transition zone appears to be in the pelvis. APPENDIX: Normal appendix. PERITONEUM: Unremarkable. No free fluid. No free air. LYMPH NODES: Unremarkable. No enlarged lymph nodes. BLADDER: Unremarkable. REPRODUCTIVE: Unremarkable. BONES: No acute fracture. OTHER FINDINGS: None. IMPRESSION: Dilated loops of small bowel consistent with small bowel obstruction. Transition zone appears to be in the pelvis.4.9 centimeter right parapelvic cyst with calcified septations compatible with a Bosniak type 2 F cyst. The lesion is decreased in size since prior examination.
[2018-09-21 10:12] LABS: BASO # 0.01 K/mm3 (0.0-2.0); BASO % 0.2 % (0.0-3.0); EOS # 0.1 (0.0-0.7); EOS % 0.8 % (1.5-5.0); HEMOGLOBIN 13.5 g/dL (14.0-18.0); LYMPH # 1.6 (1.2-3.4); LYMPH % 23.7 % (22.0-35.0); MEAN CELL VOLUME 75.1 fl (80.0-105.0); MEAN CORPUSCULAR HEMOGLOBIN 25.2 pg (25.0-35.0); MEAN CORPUSCULAR HGB CONC 33.6 g/dl (31.0-37.0); MEAN PLATELET VOLUME 10.8 fl (7.0-11.0); MONO # 0.5 (0.1-0.6); MONO % 7.3 % (1.0-6.0); RBC 5.35 10^6/uL (3.5-6.1); WHITE BLOOD COUNT 6.6 10^3/uL (4.5-11.0)
[2018-09-21] MEDS ORDERED: Magnesium Sulfate 2 GM in Sodium Chloride 0.9% 100 ML IV ONE (11:09)
[2018-09-21] MEDS ORDERED: Magnesium Sulfate 2 GM in 50 ml Water IVPB ONE (11:15)
[2018-09-21 11:20] LABS: ALB/GLOB RATIO 0.9 (1.1-1.8); ALBUMIN 3.2 g/dL (3.0-4.8); ALT/SGPT < 6 U/L (7-56); AST/SGOT 33 U/L (17-59); BLOOD UREA NITROGEN 22 mg/dL (7-21); CALCIUM 9.5 mg/dL (8.4-10.5); GFR NON-AFRICAN AMERICAN > 60
[2018-09-21] MEDS: Sodium Chloride 0.9% 1,000 ML IV SCH (14:17)
--- NOTE | 2018-09-21 16:59 | CARD ---
APPROVED REPORT Date of service: 09/20/2018 EKG Measurement Heart [id number] <Conclusion> Normal sinus rhythm Incomplete right bundle branch block Borderline ECG
--- NOTE | 2018-09-21 23:16 | HP ---
DATE OF EXAM: 09/21/2018 HISTORY OF PRESENT ILLNESS: The patient was seen and examined. I do agree with the note of the medical office administrator and plan of care was also discussed. The patient's is at the bedside and was able to on the patient's symptoms. The patient started having abdominal pain yesterday afternoon about 2 o'clock. He was admitted to the hospital for further evaluation. He had a CT scan done that showed dilated loops of small bowel consistent with a small bowel obstruction. The patient had NG tube that was placed. He states that he is feeling better. He is currently diabetic and he is going to be on sliding scale. He is currently n.p.o. We will hold his aspirin because he is currently n.p.o. The patient has a history of renal cyst. This was again seen on the CAT scan. He is going to be seen by Dr. Watkins from Surgery, this is a second event that the patient has regarding this small bowel obstruction. The patient is on Zofran as needed for his nausea. He is going to be on Toradol for his pain. He is on Protonix for reflux and GERD. The patient remains on IV fluids. I will decrease his rate of IV fluids to normal saline at 75 hour. Chuckie Leahy MD
[2018-09-22] MEDS: Sodium Chloride 0.9% 1,000 ML IV SCH (03:00)
--- NOTE | 2018-09-22 07:41 | CP.PCM.DIS ---
<JakobGhazala - Last Filed: 09/22/18 11:32> Provider - Provider Date of Admission: 09/21/18 00:41 Attending physician: Chuckie Leahy MD Primary care physician: Chuckie Leahy MD Consults: 09/21/18 00:39 General Surgery Consult Stat Comment: Consulting Provider: Caleb Watkins Consulting Physician: Caleb Watkins Reason for Consult: Small Bowel Obstruction Time Spent in preparation of Discharge (in minutes): 45 Diagnosis - Discharge Diagnosis (1) Small bowel obstruction Status: Resolved (2) Diabetes Status: Chronic (3) Essential (primary) hypertension Status: Chronic (4) Kidney lesion Status: Chronic Hospital Course - Lab Results Lab Results: Most Recent Lab Values WBC 6.6 10^3/uL (4.5-11.0) D 09/21/18 10:00 RBC 5.35 10^6/uL (3.5-6.1) 09/21/18 10:00 Hgb 13.5 g/dL (14.0-18.0) L 09/21/18 10:00 Hct 40.2 % (42.0-52.0) L 09/21/18 10:00 MCV 75.1 fl (80.0-105.0) L 09/21/18 10:00 MCH 25.2 pg (25.0-35.0) 09/21/18 10:00 MCHC 33.6 g/dl (31.0-37.0) 09/21/18 10:00 RDW 15.0 % (11.5-14.5) H 09/21/18 10:00 Plt Count 272 10^3/uL (120.0-450.0) 09/21/18 10:00 MPV 10.8 fl (7.0-11.0) 09/21/18 10:00 Neut % (Auto) 68.0 % (50.0-68.0) 09/21/18 10:00 Lymph % (Auto) 23.7 % (22.0-35.0) 09/21/18 10:00 [place] % (Auto) 7.3 % (1.0-6.0) H 09/21/18 10:00 Eos % (Auto) 0.8 % (1.5-5.0) L 09/21/18 10:00 Baso % (Auto) 0.2 % (0.0-3.0) 09/21/18 10:00 Lymph # (Auto) 1.6 (1.2-3.4) 09/21/18 10:00 [place] # (Auto) 0.5 (0.1-0.6) 09/21/18 10:00 Eos # (Auto) 0.1 (0.0-0.7) 09/21/18 10:00 Baso # (Auto) 0.01 K/mm3 (0.0-2.0) 09/21/18 10:00 Absolute Neuts (auto) 4.46 (1.4-6.5) 09/21/18 10:00 PT 12.3 SECONDS (9.4-12.5) 09/20/18 21:58 INR 1.11 09/20/18 21:58 APTT 37.4 Seconds (26.9-38.3) 09/20/18 21:58 Sodium 136 mmol/L (132-148) 09/21/18 10:00 Potassium 3.9 mmol/L (3.6-5.0) 09/21/18 10:00 Chloride 93 mmol/L (98-107) L 09/21/18 10:00 Carbon Dioxide 37 mmol/L (21-33) H 09/21/18 10:00 Anion Gap 10 (10-20) 09/21/18 10:00 BUN 22 mg/dL (7-21) H 09/21/18 10:00 Creatinine 1.0 mg/dl (0.8-1.5) 09/21/18 10:00 Est GFR ( Amer) > 60 09/21/18 10:00 Est GFR (Non-Af Amer) > 60 09/21/18 10:00 POC Glucose (mg/dL) 121 mg/dL (65-110) H 09/22/18 07:15 Random Glucose 116 mg/dL (70-110) H 09/21/18 10:00 Calcium 9.5 mg/dL (8.4-10.5) 09/21/18 10:00 Phosphorus 2.9 mg/dL (2.5-4.5) 09/21/18 10:00 Magnesium 1.7 mg/dL (1.7-2.2) 09/21/18 10:00 Total Bilirubin 0.2 mg/dL (0.2-1.3) 09/21/18 10:00 AST 33 U/L (17-59) 09/21/18 10:00 ALT < 6 U/L (7-56) L 09/21/18 10:00 Alkaline Phosphatase 91 U/L (38-126) 09/21/18 10:00 Troponin I < 0.01 ng/mL 09/20/18 21:58 Total Protein 6.7 g/dL (5.8-8.3) 09/21/18 10:00 Albumin 3.2 g/dL (3.0-4.8) 09/21/18 10:00 Globulin 3.5 gm/dL 09/21/18 10:00 Albumin/Globulin Ratio 0.9 (1.1-1.8) L 09/21/18 10:00 Lipase 25 U/L (23-300) 09/20/18 21:58 Urine Color Yellow (YELLOW) 09/20/18 22:21 Urine Appearance Clear (CLEAR) 09/20/18 22:21 Urine pH 7.0 (4.7-8.0) 09/20/18 22:21 Ur Specific Mobile 1.020 (1.005-1.035) 09/20/18 22:21 Urine Protein 30 mg/dL (<30 mg/dL) H 09/20/18 22:21 Urine Glucose (UA) Negative mg/dL (NEGATIVE) 09/20/18 22:21 Urine Ketones 40 mg/dL (NEGATIVE) H 09/20/18 22:21 Urine Blood Trace-intact (NEGATIVE) H 09/20/18 22:21 Urine Nitrate Negative (NEGATIVE) 09/20/18 22:21 Urine Bilirubin Negative (NEGATIVE) 09/20/18 22:21 Urine Urobilinogen 0.2 E.U./dL (<1 E.U./dL) 09/20/18 22:21 Ur Leukocyte Esterase Negative Kayla/uL (NEGATIVE) 09/20/18 22:21 Urine RBC 0 - 2 /hpf (0-2) 09/20/18 22:21 Urine WBC None /hpf (0-6) 09/20/18 22:21 Ur Epithelial Cells None /hpf (0-5) 09/20/18 22:21 - Hospital Course Hospital Course: Patient is a 57 y/o male with PMHx of IDDM2, HTN, Renal cysts, kidney stone, GERD, h/o SBP post umbilical hernia repair presenting with diffuse abdominal pain along with nausea and vomiting. Patient was found to have small bowel obstruction. NGT was inserted, leading to the resolution of the obstruction. Patient was given liquid diet which was eventually advanced to regular diet. Patient is to be discharged to follow up with primary care doctor in 5-7 days. Diet: moderate carb, healthy diet as tolerated Activity: resume baseline activity. - Date & Time of H&P Date of H&P: 09/22/18 Time of H&P: 07:07 Discharge Exam - Head Exam Head Exam: ATRAUMATIC, NORMAL INSPECTION, NORMOCEPHALIC - Eye Exam Eye Exam: EOMI, Normal appearance, PERRL. absent: Scleral icterus Pupil Exam: NORMAL ACCOMODATION - ENT Exam ENT Exam: Mucous Membranes Moist - Neck Exam Neck exam: Normal Inspection - Respiratory Exam Respiratory Exam: Clear to PA & Lateral, NORMAL BREATHING PATTERN, UNREMARKABLE. absent: Rales, Rhonchi, Wheezes, Respiratory Distress, Stridor - Cardiovascular Exam Cardiovascular Exam: REGULAR RHYTHM, RRR, +S1, +S2. absent: Bradycardia, Tachycardia, Diastolic murmur, Gallop, JVD, Rubs, Systolic Murmur - GI/Abdominal Exam GI & Abdominal Exam: Normal Bowel Sounds, Unremarkable. absent: Distended, Firm, Guarding, Rebound, Rigid, Soft, Tenderness - Extremities Exam Extremities exam: normal inspection - Back Exam Back exam: NORMAL INSPECTION - Neurological Exam Neurological exam: Alert, Oriented x3 - Psychiatric Exam Psychiatric exam: Normal Affect, Normal Mood - Skin Skin Exam: Dry, Intact, Normal Color, Warm Discharge Plan - Follow Up Plan Condition: STABLE Disposition: HOME/ ROUTINE Patient education suggested?: Yes Instructions: Small Bowel Obstruction (DC) Additional Instructions: Please follow up with your primary care doctor in 5 to 7 days Continue with your home medications Please return if the symptoms returns or call 911. Referrals: Chuckie Leahy MD [Primary Care Provider] - <Chuckie Leahy - Last Filed: 09/22/18 12:05> Provider - Provider Date of Admission: 09/21/18 00:41 Attending physician: Chuckie Leahy MD Primary care physician: Chuckie Leahy MD Consults: 09/21/18 00:39 General Surgery Consult Stat Comment: Consulting Provider: Caleb Watkins Consulting Physician: Caleb Watkins Reason for Consult: Small Bowel Obstruction Hospital Course - Lab Results Lab Results: Micro Results 09/20/18 22:21 Urine,Clean Catch Urine Culture - Final No Growth (<1,000 CFU/ML) Most Recent Lab Values WBC 6.6 10^3/uL (4.5-11.0) D 09/21/18 10:00 RBC 5.35 10^6/uL (3.5-6.1) 09/21/18 10:00 Hgb 13.5 g/dL (14.0-18.0) L 09/21/18 10:00 Hct 40.2 % (42.0-52.0) L 09/21/18 10:00 MCV 75.1 fl (80.0-105.0) L 09/21/18 10:00 MCH 25.2 pg (25.0-35.0) 09/21/18 10:00 MCHC 33.6 g/dl (31.0-37.0) 09/21/18 10:00 RDW 15.0 % (11.5-14.5) H 09/21/18 10:00 Plt Count 272 10^3/uL (120.0-450.0) 09/21/18 10:00 MPV 10.8 fl (7.0-11.0) 09/21/18 10:00 Neut % (Auto) 68.0 % (50.0-68.0) 09/21/18 10:00 Lymph % (Auto) 23.7 % (22.0-35.0) 09/21/18 10:00 [place] % (Auto) 7.3 % (1.0-6.0) H 09/21/18 10:00 Eos % (Auto) 0.8 % (1.5-5.0) L 09/21/18 10:00 Baso % (Auto) 0.2 % (0.0-3.0) 09/21/18 10:00 Lymph # (Auto) 1.6 (1.2-3.4) 09/21/18 10:00 [place] # (Auto) 0.5 (0.1-0.6) 09/21/18 10:00 Eos # (Auto) 0.1 (0.0-0.7) 09/21/18 10:00 Baso # (Auto) 0.01 K/mm3 (0.0-2.0) 09/21/18 10:00 Absolute Neuts (auto) 4.46 (1.4-6.5) 09/21/18 10:00 PT 12.3 SECONDS (9.4-12.5) 09/20/18 21:58 INR 1.11 09/20/18 21:58 APTT 37.4 Seconds (26.9-38.3) 09/20/18 21:58 Sodium 136 mmol/L (132-148) 09/21/18 10:00 Potassium 3.9 mmol/L (3.6-5.0) 09/21/18 10:00 Chloride 93 mmol/L (98-107) L 09/21/18 10:00 Carbon Dioxide 37 mmol/L (21-33) H 09/21/18 10:00 Anion Gap 10 (10-20) 09/21/18 10:00 BUN 22 mg/dL (7-21) H 09/21/18 10:00 Creatinine 1.0 mg/dl (0.8-1.5) 09/21/18 10:00 Est GFR ( Amer) > 60 09/21/18 10:00 Est GFR (Non-Af Amer) > 60 09/21/18 10:00 POC Glucose (mg/dL) 254 mg/dL (65-110) H 09/22/18 11:32 Random Glucose 116 mg/dL (70-110) H 09/21/18 10:00 Calcium 9.5 mg/dL (8.4-10.5) 09/21/18 10:00 Phosphorus 2.9 mg/dL (2.5-4.5) 09/21/18 10:00 Magnesium 1.7 mg/dL (1.7-2.2) 09/21/18 10:00 Total Bilirubin 0.2 mg/dL (0.2-1.3) 09/21/18 10:00 AST 33 U/L (17-59) 09/21/18 10:00 ALT < 6 U/L (7-56) L 09/21/18 10:00 Alkaline Phosphatase 91 U/L (38-126) 09/21/18 10:00 Troponin I < 0.01 ng/mL 09/20/18 21:58 Total Protein 6.7 g/dL (5.8-8.3) 09/21/18 10:00 Albumin 3.2 g/dL (3.0-4.8) 09/21/18 10:00 Globulin 3.5 gm/dL 09/21/18 10:00 Albumin/Globulin Ratio 0.9 (1.1-1.8) L 09/21/18 10:00 Lipase 25 U/L (23-300) 09/20/18 21:58 Urine Color Yellow (YELLOW) 09/20/18 22:21 Urine Appearance Clear (CLEAR) 09/20/18 22:21 Urine pH 7.0 (4.7-8.0) 09/20/18 22:21 Ur Specific Mobile 1.020 (1.005-1.035) 09/20/18 22:21 Urine Protein 30 mg/dL (<30 mg/dL) H 09/20/18 22:21 Urine Glucose (UA) Negative mg/dL (NEGATIVE) 09/20/18 22:21 Urine Ketones 40 mg/dL (NEGATIVE) H 09/20/18 22:21 Urine Blood Trace-intact (NEGATIVE) H 09/20/18 22:21 Urine Nitrate Negative (NEGATIVE) 09/20/18 22:21 Urine Bilirubin Negative (NEGATIVE) 09/20/18 22:21 Urine Urobilinogen 0.2 E.U./dL (<1 E.U./dL) 09/20/18 22:21 Ur Leukocyte Esterase Negative Kayla/uL (NEGATIVE) 09/20/18 22:21 Urine RBC 0 - 2 /hpf (0-2) 09/20/18 22:21 Urine WBC None /hpf (0-6) 09/20/18 22:21 Ur Epithelial Cells None /hpf (0-5) 09/20/18 22:21 - Hospital Course Hospital Course: Pt seen and examined by me. I have reviewed the note of the medical lab assistant and I agree with it. I have discussed the assessment and plan with the resident. I have reviewed the medications and the last labs.
[2018-09-22] MEDS: Insulin Lispro (humaLOG) LOW Coverage SC SCH ×2 (08:12→13:00)
--- NOTE | 2018-09-22 08:31 | CP.PCM.PN ---
Subjective - Date & Time of Evaluation Date of Evaluation: 09/22/18 Time of Evaluation: 08:27 - Subjective Subjective: Serafin Mancuso PGY1 Progress Note for Dr. Watkins Pt was examined at bedside this morning. He reports improvement in his abdominal pain compared to last night. He reports feeling hungry and is requesting solid food today. He denies fever, nausea, chills, diarrhea, vomiting. Objective - Vital Signs/Intake and Output Vital Signs (last 24 hours): Temp Pulse Resp BP Pulse Ox 99.3 F 89 20 123/72 97 09/21/18 08:56 09/21/18 08:56 09/21/18 08:56 09/21/18 08:56 09/21/18 08:56 Intake and Output: 09/22/18 09/22/18 06:59 18:59 Intake Total 120 Balance 120 - Medications Medications: Current Medications Aspirin (Ecotrin) 81 mg PO DAILY [facility] Atorvastatin Calcium (Lipitor) 40 mg PO QPM [facility] Benzocaine/Menthol (Cepacol Sore Throat) 1 winnie MT Q2H PRN PRN Reason: Sore Throat Bupropion HCl (Wellbutrin Xl) 150 mg PO DAILY [facility] Dextrose (Dextrose 50% Inj) 50 ml IV STAT PRN PRN Reason: H Gabapentin (Neurontin) 200 mg PO BID [facility]; Protocol Glipizide (Glucotrol) 10 mg PO TID [facility] Dextrose (Dextrose 5% In Water 1000 Ml) 1,000 mls @ 0 mls/hr IV .Q0M PRN; Protocol PRN Reason: Hypoglycemia Protocol Insulin Human Lispro (Humalog Low) 0 units SC ACHS [facility]; Protocol Last Admin: 09/22/18 08:12 Dose: Not Given Ketorolac Tromethamine (Toradol) 15 mg IVP Q6H PRN PRN Reason: Pain, moderate (4-7) Last Admin: 09/21/18 17:17 Dose: 15 mg Losartan Potassium (Cozaar) 50 mg PO DAILY [facility] [id number] Ethyl Esters (Lovaza) 1 gm PO BID [facility] Ondansetron HCl (Zofran Inj) 4 mg IVP Q6H PRN PRN Reason: Nausea/Vomiting Pantoprazole Sodium (Protonix Ec Tab) 40 mg PO 0600 [facility] - Labs Labs: 09/21/18 10:00 09/21/18 10:00 PT 12.3 SECONDS (9.4-12.5) 09/20/18 21:58 INR 1.11 09/20/18 21:58 APTT 37.4 Seconds (26.9-38.3) 09/20/18 21:58 - Constitutional Appears: Well, No Acute Distress - Head Exam Head Exam: ATRAUMATIC, NORMOCEPHALIC - Eye Exam Eye Exam: Normal appearance - ENT Exam ENT Exam: Mucous Membranes Moist - Neck Exam Neck Exam: Full ROM - Respiratory Exam Respiratory Exam: Clear to Ausculation Bilateral, NORMAL BREATHING PATTERN. absent: Rales, Rhonchi, Wheezes - Cardiovascular Exam Cardiovascular Exam: REGULAR RHYTHM, +S1, +S2. absent: Gallop, Rubs, Murmur - GI/Abdominal Exam GI & Abdominal Exam: Soft, Normal Bowel Sounds. absent: Distended, Tenderness - Extremities Exam Extremities Exam: Normal Inspection - Neurological Exam Neurological Exam: Alert, Awake, Oriented x3 - Psychiatric Exam Psychiatric exam: Normal Affect, Normal Mood - Skin Skin Exam: Normal Color Assessment and Plan - Assessment and Plan (Free Text) Assessment: 57yo M with PMHx of DM, HTN, CAD admitted for small bowel obstruction Plan: - advance to regular diet - likely d/c this afternoon if tolerating diet - Antiemetics as needed - Pain management - Monitor for bowel function - lozenges for comfort Further recs as per Dr. Watkins
[2018-09-22 09:17] VITALS: BP 103/62; PULSE 59; TEMP 98.3; O2SAT 98
[2018-09-22] MEDS ORDERED: Omega-3-Acid Ethyl Esters 1 GM Cap PO SCH (10:00)
[2018-09-22] MEDS ORDERED: buPROPion 150 mg/24 Hours XL Tab PO SCH (10:00)
--- NOTE | 2018-09-23 01:38 | DS ---
HOSPITAL COURSE: The patient was seen and examined. I do agree with the note of the medical auditor. I was involved with the plan of care. The patient is a 57-year-old male who had come to the hospital after he was found to have small bowel obstruction. The patient was seen by Dr. Watkins. He had NG tube that was placed and he had improvement in his symptoms. The patient has NG tube taken out. He was able to tolerate his diet. He states he feels well. He does not have any pain. The patient was going to be discharged home. He is going to continue with his diabetes medications. He has his at bedside. I did speak to her. She is nurse at the [facility]. The patient was warned if he has another episode of this bowel obstruction, most likely he will need surgery and he says he does understand this. He had a history of adhesions from previous surgery and this is most likely the cause of small bowel obstruction. He is going to follow up with me in the office in 1 to 2 weeks. CONDITION: Stable. ACTIVITY: Increase as tolerated. He is going to continue the Wellbutrin. He is on glipizide for his diabetes, this will be continued. He is on losartan. Chuckie Leahy MD
[2018-09-23] MEDS ORDERED: Pantoprazole 40 mg EC Tab PO SCH (06:00)
== END 2018-09-22 15:19 | disposition home or self-care (01) | DRG 390 ==
LOC: ED 20:45 → ERH 09-21 00:41 → 3RSO 09-21 02:10
PROVIDERS: ADMIT Internal Medicine Nephrology; ATTEND Internal Medicine Nephrology
DX: K56.609 Unspecified intestinal obstruction, unspecified as to partial versus complete obstruction (principal); I12.9 Hypertensive chronic kidney disease with stage 1 through stage 4 chronic kidney disease, or unspecified chronic kidney disease; E11.22 Type 2 diabetes mellitus with diabetic chronic kidney disease; E11.40 Type 2 diabetes mellitus with diabetic neuropathy, unspecified; I25.10 Atherosclerotic heart disease of native coronary artery without angina pectoris; N18.9 Chronic kidney disease, unspecified; N28.1 Cyst of kidney, acquired; E83.42 Hypomagnesemia; F32.9 Major depressive disorder, single episode, unspecified; R16.1 Splenomegaly, not elsewhere classified; G47.30 Sleep apnea, unspecified; E78.5 Hyperlipidemia, unspecified; K21.9 Gastro-esophageal reflux disease without esophagitis; Z79.4 Long term (current) use of insulin; Z79.82 Long term (current) use of aspirin; Z87.442 Personal history of urinary calculi